=== PATIENT | female | born 1965 | race Caucasian/White ===

== ENCOUNTER 2023-09-10 10:14 | Outpatient (CLI) | payer BC, SELFPAY ==
--- NOTE | 2023-09-10 11:36 | W.ANESCHARGE ---
Anesthesia Charges Start Date/Time Anesthesia Start Date: 09/10/23 Anesthesia Start Time: 11:05 Stop Date/Time Anesthesia Stop Date: 09/10/23 Anesthesia Stop Time: 11:32
== END 2023-09-10 10:15 | disposition home or self-care (01) ==
LOC: OP CLINIC 10:15
PROVIDERS: PCP Family Medicine; Visit Provider Internal Medicine Gastroenterology
DX: Z12.11 Encounter for screening for malignant neoplasm of colon (principal); K63.5 Polyp of colon; K57.30 Diverticulosis of large intestine without perforation or abscess without bleeding
CPT/HCPCS: 45385; 811; 88305; J2704